=== PATIENT | male | born 1985 | race Caucasian/White ===

== ENCOUNTER 2018-04-16 17:34 | Emergency (ER) | payer MEDICAID ==
[2018-04-16 17:44] VITALS: RESP 18
[2018-04-16 17:46] VITALS: BMI 29.7
--- NOTE | 2018-04-16 18:36 | ED PDOC ---
Arrival/HPI - General Chief Complaint: Psychiatric Evaluation Time Seen by Provider: 04/16/18 17:37 Historian: Parent - History of Present Illness Narrative History of Present Illness (Text): 04/16/18 18:30 A 32 year old male, whose past medical history includes autism (non-verbal), brought in by mother into the emergency department for aggressive behavior. Per mother, patient was breaking all the furniture at home. States this is not the first time he has exhibited aggressive behavior. she mentions every time he takes his medications for autism, they only work for a short while. Currently, patient does not have a psychiatrist. PMD: Dr. Kala Duran Past Medical History - Provider Review Nursing Documentation Reviewed: Yes - Infectious Disease Hx of Infectious Diseases: None - Tetanus Immunization Tetanus Immunization: Unknown - Cardiac Hx Cardiac Disorders: No - Pulmonary Hx Respiratory Disorders: No - Neurological Hx Neurological Disorder: No - HEENT Hx HEENT Disorder: No - Renal Hx Renal Disorder: No - Endocrine/Metabolic Hx Endocrine Disorders: No - Hematological/Oncological Hx Blood Disorders: No - Integumentary Hx Dermatological Disorder: No - Musculoskeletal/Rheumatological Hx Musculoskeletal Disorders: No - Gastrointestinal Hx Gastrointestinal Disorders: No - Genitourinary/Gynecological Hx Genitourinary Disorders: No - Psychiatric Hx Psychophysiologic Disorder: Yes Hx Substance Use: No Other/Comment: low function autism - Past Surgical History Past Surgical History: No Previous - Suicidal Assessment Feels Threatened In Home Enviroment: No Family/Social History - Physician Review Nursing Documentation Reviewed: Yes Family/Social History: No Known Family HX Smoking Status: Never Smoked Hx Alcohol Use: No Hx Substance Use: No Hx Substance Use Treatment: No Allergies/Home Meds Allergies/Adverse Reactions: Allergies No Known Allergies Allergy (Verified 04/16/18 17:53) Home Medications: Home Meds Medication Instructions Recorded Confirmed Risperidone [Risperdal] 3 mg PO BID 12/10/12 04/16/18 Divalproex [Depakote ER] 3,000 mg PO DAILY 04/16/18 04/16/18 Review of Systems - Physician Review All systems were reviewed & negative as marked: Yes - Review of Systems Constitutional: absent: Fevers Psychiatric: Other (aggressive behavior) Physical Exam - Physical Exam Narrative Physical Exam (Text): Gen: VS reviewed, alert, well developed, well nourished, nontoxic, mild distress. ENT: normal pharynx. Eye: EOMI, PERRL. Neck: no JVD, supple, no adenopathy. CV: regular rate, regular rhythm, no rubs, no murmur, no gallops, S1, S2, pulses equal and strong. Pulm: no distress, clear to auscultation, no wheeze, no rhonchi, breath sounds equal, no rales. Abd: soft, nontender, no guarding, no rebound, no rigidity, normal bowel sounds. Ext: no edema. Skin: good color, no rash, no cyanosis. Psych: limited secondary to being non-verbal. Neuro: limited secondary to being non-verbal. Vital Signs Temp Pulse Resp BP Pulse Ox 04/16/18 17:44 98.0 F 87 18 110/68 96 Medical Decision Making ED Course and Treatment: 04/16/18 18:39 Impression: 32 year old male brought in by mother for aggressive behavior at home. Plan: -- Reassess and disposition Progress Notes: 04/16/18 19:45 patient seen by PES and states patient can be discharged home and not committable. mother is in the emergency department stating she wants to take her son home because we "are not a real hospital" "she's been here since 6 oclock and has not seen a psychiatrist". 04/16/18 19:56 patient is now agitated after the mother went her tirade of unhappiness. patient cannot be talked down to a calm state. for the patient's safety and the safety of emergency department staff, he will need medication for sedation. The patient's behavior is creating an unsafe situation and placing himself, staff, and other patients at risk. The patient is: pacing around the ED; patient cannot cooperate due to autism, uncooperative and unable to comprehend his/her situation or make informed choices regarding his/her own health. Non-pharmacologic approaches, including verbal de-escalation and reducing environmental stimulation, were attempted but unsuccessful. Patient sedated with geodon 20mgIM under my supervision. The patient was reassessed by me 15 minutes after medication administration. Patient re-assessed and found to be with resolved agitation, sleeping comfortably, with stable vitals. In summary, pharmacologic intervention targeted at this patients underlying illness was successful in alleviating agitation, facilitating an accurate assessment and ensuring safety for the patient, staff and others. 04/16/18 19:59 - Scribe Statement The provider has reviewed the documentation as recorded by the Franny Seay Provider Scribe Attestation: All medical record entries made by the Scribe were at my direction and personally dictated by me. I have reviewed the chart and agree that the record accurately reflects my personal performance of the history, physical exam, medical decision making, and the department course for this patient. I have also personally directed, reviewed, and agree with the discharge instructions and disposition. Disposition/Present on Arrival - Present on Arrival Any Indicators Present on Arrival: No History of DVT/PE: No History of Uncontrolled Diabetes: No Urinary Catheter: No History of Decub. Ulcer: No History Surgical Site Infection Following: None - Disposition Have Diagnosis and Disposition been Completed?: Yes Diagnosis: Combative behavior, Autism Patient Problems: Current Active Problems Problem Status Onset Combative behavior Acute Autism Acute Discharge Instructions (ExitCare): Autism Spectrum Disorder Referrals: Sung Fuentes JD, MD [Primary Care Provider] - Follow up with primary Forms: [employer] (Turkish)
[2018-04-16 22:16] LABS: BASO # 0.02 K/mm3 (0.0-2.0); BASO % 0.4 % (0.0-3.0); EOS # 0.1 (0.0-0.7); EOS % 2.9 % (1.5-5.0); GRAN # 2.1 (1.4-6.5); HEMOGLOBIN 12.9 g/dL (14.0-18.0); LYMPH # 1.7 (1.2-3.4); LYMPH % 34.7 % (22.0-35.0); MEAN CELL VOLUME 82.2 fl (80.0-105.0); MEAN CORPUSCULAR HGB CONC 32.9 g/dl (31.0-37.0); MEAN PLATELET VOLUME 10.8 fl (7.0-11.0); MONO # 0.9 (0.1-0.6); RBC 4.77 10^6/uL (3.5-6.1); RED CELL DISTRIBUTION WIDTH 13.4 % (11.5-14.5); WHITE BLOOD COUNT 4.8 10^3/uL (4.5-11.0)
[2018-04-16 22:24] LABS: ACETAMINOPHEN < 10.0 ug/ml (10.0-20.0); ALB/GLOB RATIO 1.3 (1.1-1.8); ALBUMIN 3.9 g/dL (3.0-4.8); ALT/SGPT 31 U/L (7-56); AST/SGOT 20 U/L (17-59); BLOOD UREA NITROGEN 13 mg/dL (7-21); CALCIUM 9.3 mg/dL (8.4-10.5); GFR NON-AFRICAN AMERICAN > 60; SALICYLATE < 1 mg/dL (2.0-20.0)
[2018-04-17 06:47] LABS: URINE APPEARANCE CLEAR (CLEAR); URINE BILIRUBIN NEGATIVE (NEGATIVE); URINE BLOOD NEGATIVE (NEGATIVE); URINE COLOR YELLOW (YELLOW); URINE GLUCOSE (UA) NEGATIVE (NEGATIVE); URINE LEUKOCYTE ESTERASE NEGATIVE Leu/uL (NEGATIVE); URINE PROTEIN NEGATIVE mg/dL (<30 mg/dL)
--- NOTE | 2018-04-17 06:50 | ED PDOC ---
Physical Exam Vital Signs Temp Pulse Resp BP Pulse Ox 04/17/18 06:15 85 18 118/74 100 04/16/18 17:44 98.0 F 87 18 110/68 96 Medical Decision Making ED Course and Treatment: Signed out to me at change of shift pending PES evaluation. Patient sedated and sleeping. PES evaluated patient later on in night, Hien screener will come in AM. Signed out to ED day team. - Lab Interpretations Lab Results: Total Bilirubin 0.2 mg/dL (0.2-1.3) 04/16/18 22:09 AST 20 U/L (17-59) 04/16/18 22:09 ALT 31 U/L (7-56) 04/16/18 22:09 Alkaline Phosphatase 64 U/L (38-126) 04/16/18 22:09 Total Protein 7.0 g/dL (5.8-8.3) 04/16/18 22:09 Albumin 3.9 g/dL (3.0-4.8) 04/16/18 22:09 Globulin 3.1 gm/dL 04/16/18 22:09 Albumin/Globulin Ratio 1.3 (1.1-1.8) 04/16/18 22:09 Urine Color Yellow (YELLOW) 04/17/18 01:45 Urine Appearance Clear (CLEAR) 04/17/18 01:45 Urine pH 6.0 (4.7-8.0) 04/17/18 01:45 Ur Specific Sulphur 1.015 (1.005-1.035) 04/17/18 01:45 Urine Protein Negative mg/dL (<30 mg/dL) 04/17/18 01:45 Urine Glucose (UA) Negative mg/dL (NEGATIVE) 04/17/18 01:45 Urine Ketones Negative mg/dL (NEGATIVE) 04/17/18 01:45 Urine Blood Negative (NEGATIVE) 04/17/18 01:45 Urine Nitrate Negative (NEGATIVE) 04/17/18 01:45 Urine Bilirubin Negative (NEGATIVE) 04/17/18 01:45 Urine Urobilinogen .2 E.U./dL (<1 E.U./dL) 04/17/18 01:45 Ur Leukocyte Esterase Negative Miles/uL (NEGATIVE) 04/17/18 01:45 - RAD Interpretation Radiology Orders: 04/16/18 20:17 CHEST PORTABLE [RAD] Stat - Medication Orders Current Medication Orders: Discontinued Medications Ziprasidone (Geodon Inj) 20 mg IM STAT STA; Protocol Stop: 04/16/18 19:57 Last Admin: 04/16/18 20:20 Dose: 20 mg IM Administration Charges Document 04/16/18 20:20 JOL (Rec: 04/16/18 20:21 JOL [id number]) Injection Site MAR Injection Site Right Vastus Lateralis Charges for Administration # of IM Administrations 1 Disposition/Present on Arrival - Present on Arrival Any Indicators Present on Arrival: No History of DVT/PE: No History of Uncontrolled Diabetes: No Urinary Catheter: No History of Decub. Ulcer: No History Surgical Site Infection Following: None - Disposition Have Diagnosis and Disposition been Completed?: Yes Diagnosis: Combative behavior, Autism Disposition Time: 07:00 Patient Problems: Current Active Problems Problem Status Onset Autism Acute Combative behavior Acute Condition: STABLE Discharge Instructions (ExitCare): Autism Spectrum Disorder Referrals: Sung Fuentes JD, MD [Primary Care Provider] - Follow up with primary Forms: [employer] (Turkish)
[2018-04-17 07:25] LABS: BARBITURATES, UR NEGATIVE (NEGATIVE); BENZODIAZEPINES, UR NEGATIVE (NEGATIVE); OPIATES, UR NEGATIVE (NEGATIVE); PHENCYCLIDINE, UR NEGATIVE (NEGATIVE)
--- NOTE | 2018-04-17 08:26 | RAD ---
Date of service: 04/16/2018 HISTORY: medical screening COMPARISON: No prior. FINDINGS: LUNGS: No active pulmonary disease. PLEURA: No significant pleural effusion identified, no pneumothorax apparent. CARDIOVASCULAR: No aortic atherosclerotic calcification present. Normal cardiac size. No pulmonary vascular congestion. OSSEOUS STRUCTURES: No significant abnormalities. VISUALIZED UPPER ABDOMEN: Normal. OTHER FINDINGS: None. IMPRESSION: No active disease.
--- NOTE | 2018-04-17 09:38 | ED PDOC ---
Physical Exam Vital Signs Temp Pulse Resp BP Pulse Ox 04/17/18 08:30 80 18 110/65 97 04/17/18 06:15 85 18 118/74 100 04/16/18 17:44 98.0 F 87 18 110/68 96 Medical Decision Making ED Course and Treatment: 04/17/18 07:00 Case endorsed to me by Dr. Bunn. Currently pending PES screener. 04/17/18 09:36 Dr. Ortiz has evaluated patient at bedside. Patient cooperative and has no issues at this time. Pending [facility] screening. 04/17/18 13:[address] Vazquez, who states patient has been accepted for transfer to [facility], currently pending bed availability. 04/17/18 17:29 Mr Gonzalez got very agitated in the ED. We tried to calm him down verbally but were unable to do so. He got more agitate and combative. Geodon 20mg IM ordered and placed on 4 limb restraints. 04/17/18 18:[address] Diaz to f/u transfer to [facility] Psych unit. - Lab Interpretations Lab Results: Total Bilirubin 0.2 mg/dL (0.2-1.3) 04/16/18 22:09 AST 20 U/L (17-59) 04/16/18 22:09 ALT 31 U/L (7-56) 04/16/18 22:09 Alkaline Phosphatase 64 U/L (38-126) 04/16/18 22:09 Total Protein 7.0 g/dL (5.8-8.3) 04/16/18 22:09 Albumin 3.9 g/dL (3.0-4.8) 04/16/18 22:09 Globulin 3.1 gm/dL 04/16/18 22:09 Albumin/Globulin Ratio 1.3 (1.1-1.8) 04/16/18 22:09 Urine Color Yellow (YELLOW) 04/17/18 01:45 Urine Appearance Clear (CLEAR) 04/17/18 01:45 Urine pH 6.0 (4.7-8.0) 04/17/18 01:45 Ur Specific Alexander 1.015 (1.005-1.035) 04/17/18 01:45 Urine Protein Negative mg/dL (<30 mg/dL) 04/17/18 01:45 Urine Glucose (UA) Negative mg/dL (NEGATIVE) 04/17/18 01:45 Urine Ketones Negative mg/dL (NEGATIVE) 04/17/18 01:45 Urine Blood Negative (NEGATIVE) 04/17/18 01:45 Urine Nitrate Negative (NEGATIVE) 04/17/18 01:45 Urine Bilirubin Negative (NEGATIVE) 04/17/18 01:45 Urine Urobilinogen .2 E.U./dL (<1 E.U./dL) 04/17/18 01:45 Ur Leukocyte Esterase Negative Miles/uL (NEGATIVE) 04/17/18 01:45 - RAD Interpretation Radiology Orders: 04/16/18 20:17 CHEST PORTABLE [RAD] Stat - Medication Orders Current Medication Orders: Chlorpromazine (Thorazine) 50 mg IM Q8H PRN; Protocol PRN Reason: severe agitation/aggression Chlorpromazine (Thorazine) 50 mg PO Q6H PRN; Protocol PRN Reason: restlessness/agitation Divalproex Sodium (Depakote Er(Once Daily)) 500 mg PO BID JUAN; Protocol Divalproex Sodium (Depakote Er(Once Daily)) 500 mg PO HS JUAN; Protocol Lamotrigine (Lamictal) 100 mg PO HS JUAN; Protocol Topiramate (Topamax) 100 mg PO TID JUAN; Protocol Discontinued Medications Ziprasidone (Geodon Inj) 20 mg IM STAT STA; Protocol Stop: 04/16/18 19:57 Last Admin: 04/16/18 20:20 Dose: 20 mg IM Administration Charges Document 04/16/18 20:20 JOL (Rec: 04/16/18 20:21 JOL [id number]) Injection Site MAR Injection Site Right Vastus Lateralis Charges for Administration # of IM Administrations 1 - Scribe Statement The provider has reviewed the documentation as recorded by the Franny Seay Provider Scribe Attestation: All medical record entries made by the Scribe were at my direction and personally dictated by me. I have reviewed the chart and agree that the record accurately reflects my personal performance of the history, physical exam, medical decision making, and the department course for this patient. I have also personally directed, reviewed, and agree with the discharge instructions and disposition. Disposition/Present on Arrival - Present on Arrival Any Indicators Present on Arrival: No History of DVT/PE: No History of Uncontrolled Diabetes: No Urinary Catheter: No History of Decub. Ulcer: No History Surgical Site Infection Following: None - Disposition Have Diagnosis and Disposition been Completed?: Yes Diagnosis: Combative behavior, Autism Disposition Time: 18:53 Patient Problems: Current Active Problems Problem Status Onset Combative behavior Acute Autism Acute Condition: STABLE Discharge Instructions (ExitCare): Autism Spectrum Disorder Referrals: Sung Fuentes JD, MD [Primary Care Provider] - Follow up with primary Forms: [employer] (Estonian)
[2018-04-17] MEDS: Divalproex 500 mg ER (ONCE DAILY formulation) PO SCH ×2 (10:03→19:00)
--- NOTE | 2018-04-17 12:01 | CARD ---
APPROVED REPORT Date of service: 04/16/2018 EKG Measurement Heart [id number] <Conclusion> Normal sinus rhythm Incomplete RBBB Borderline ECG
[2018-04-17 16:20] VITALS: O2SAT 96
[2018-04-17 21:02] VITALS: BP 128/60; PULSE 82; TEMP 98.2
[2018-04-17] MEDS ORDERED: Divalproex 500 mg ER (ONCE DAILY formulation) PO SCH (22:00)
--- NOTE | 2018-04-17 23:05 | CON ---
DATE OF CONSULTATION: 04/17/2018 HISTORY OF PRESENT ILLNESS: In short, the patient is a 32-year-old male with reported history of autism spectrum disorder. The patient is nonverbal. The patient is developmentally challenged. The patient was brought to the emergency room by his mother for a violent and agitated behavior. The patient was breaking all furniture at the house and the patient's mother wants to place the patient in the halfway. Overnight, mother was aggressive herself, was verbally abusive towards staff. and needed to be escorted from the emergency room. Psych consult was called for this patient for evaluation of medications and possible management. The patient was seen and examined. Unfortunately, there is no meaningful conversation possible for the patient. The patient is staring at this financial underwriter, then started to pace, then grabbed the water and went back to his room. PAS worker contacted mother. As per mother, she is his power of biomedical engineering technologist. As per mother, she cannot take care of him and she wants him to be placed to the halfway. Overnight, this financial underwriter recommended to initiate [facility] DDD program evaluation and that program was called, and as per PAS worker report, was is going to evaluate the patient today later on. PAS worker also confirmed medication from the patient's pharmacy, [facility]. The patient was on Depakote extended-release 500 mg 2 pills twice a day, Risperdal 1 mg twice a day, Topamax 100 mg 1-1/2 pills a day, 150 twice a day, Lamictal is 100 mg at the bedtime, Seroquel 50 mg 2 pills three times a day. Dr. Gonzalez prescribed all of the medications except Risperdal, which was prescribed by Sung Fuentes. This financial underwriter reviewed previous history. The patient was seen by PAS worker for behavioral problems in 2014. Back then, the patient was attending [place] DDD program and the patient was on Risperdal even back then. The patient has tendency to have similar behavior in the past. The patient has history of aggressive and agitated behavior at home. Even in 2014, the patient had similar presentation. This financial underwriter reviewed vital signs. Vital signs seem to be stable. Pulse is 80, blood pressure 110/65, respiration 18, oxygen saturation is 97. MEDICATIONS: Reviewed. The patient got Geodon 20 mg yesterday at 08:20 due to agitated behavior. LABS: Reviewed. Hemoglobin and hematocrit 12.9 and 39.2. Coagulation reviewed. Chemistry reviewed. Urinalysis reviewed. Toxicology reviewed, but unfortunately Depakote level was not drawn. We will order that. MENTAL STATUS EXAMINATION: As this financial underwriter described above. The patient is nonverbal, stares at this financial underwriter, then paces in the front desk coordinator, then grabbed the water, went back and slammed the door. The patient has no insight and poor impulse control. IMPRESSION: As per history of autistic spectrum disorder. The patient also has developmental disorder. PLAN: This financial underwriter resumed medications. Will draw blood work for Depakote. Depakote will be resumed with 500 mg three times a day. Risperdal and Seroquel will be not started. Usually Thorazine might be helpful for such patients, 50 mg IM n.p.o. as needed placed in the computer. Topamax and Lamictal would be continued with the similar doses. Case was discussed with nursing staff as well as attending in the emergency room. [facility] program will evaluate the patient for possible admission. Thank you very much for letting me participate in the care of your patient. Should you have any questions, give me a call back. Margie Ortiz MD
== END 2018-04-17 21:02 | disposition short-term general hospital (02) ==
LOC: ED 17:34
DX: F91.8 Other conduct disorders (principal); F84.0 Autistic disorder
CPT/HCPCS: 71045; 80053; 80164; 80320; 80324; 80329; 80345; 80346; 80349; 80353; 80358; 80361; 81003; 83992; 85025; 90791; 93005; 96372; 99285; J3230; J3486; Q0161